=== PATIENT | male | born 1965 | race Caucasian/White ===

== ENCOUNTER → 2016-08-14 | Outpatient (CLI) | payer BC ==
--- NOTE | ~2016-08-14 | MR113 ---
[facility] A Service of [facility] RADIOLOGY TEXT RESULTS PATIENT: HAILEE MIRANDA LOCATION: [facility] : 69 UNIT #: [id number] AGE: [address]: Leodan Rock MD SEX: M ORDER DR: [id number] [address] [id number] O MR#: [id number] Acc #: [id number] NAME: HAILEE MIRANDA : 1965 SEX: M STUDY DATE/TIME: 08/14/2016 13:01 UNIT: [facility] ROOM: STUDY DESCRIPTION: MR Lumbar Wo Contrast Attending Physician: Leodan Rock M.D. Referring Physician: Leodan Rock M.D. Ordering Physician: Leodan Rock M.D. Primary Care Physician: Leodan Rock M.D. MRI CENTER REPORT This report is preliminary unless electronic signature is present. EXAM MRI of the lumbar spine without contrast HISTORY Sciatica. Low back pain for 19 years worse recently, left greater than right-sided. No history of cancer or trauma. COMMENT MRI of the lumbar spine performed without contrast using routine 1.5T imaging technique. There is no previous. Sagittal alignment is normal. Intervertebral discs are desiccated with mild loss of intervertebral disc height at L1-2, L3-4 and to a lesser extent L5-S1. Marrow endplate degenerative changes most apparent at L3-4, type 2. Multiple small Schmorl's nodes seen. The conus medullaris terminates at L1-2 and is normal. At L1-2, there is mild facet hypertrophy, left greater than right. There is no focal disc protrusion or extrusion. There is however a component of epidural lipomatosis which results in mild stenosis of the thecal sac. No foraminal impingement. At L2-3, there is mild facet degenerative change bilaterally and there is a broad left posterolateral protrusion with mild mass effect on the expected location of the left L2 root lateral to the foramen. There is mild ligamentum flavum thickening and epidural lipomatosis with [id number] mass effect on the thecal sac, largely due to the epidural lipomatosis. At L3-4, mild bilateral facet degenerative change and mild concentric disc bulge. It has a more focal component to the left side posterolaterally and mild left inferior foraminal narrowing. There is no focal extrusion. There is [id number] stenosis of the thecal sac. A significant [facility]. [facility] A Service of [facility] RADIOLOGY TEXT RESULTS PATIENT: HAILEE MIRANDA LOCATION: [facility] : 69 UNIT #: [id number] AGE: [address]: Leodan Rock MD SEX: M ORDER DR: component of the mass effect is due to the epidural lipomatosis. At L4-5, there is mild bilateral facet degenerative change with mild effacement of the anterior thecal sac. There is mild epidural lipomatosis. No central canal stenosis or foraminal impingement. At L5-S1, mild right and djuh-ob-hliciwrk left-side facet degenerative change with mild broad-based posterior disc protrusion more prominent to the left side posterolaterally. Mild mass effect on the thecal sac by the epidural fat. No significant foraminal impingement. Mildly developmentally small lumbar canal also noted secondary to short pedicles and this contributes to the multiple level stenosis of the thecal sac. IMPRESSION Patient has epidural lipomatosis and a mildly developmentally small lumbar canal. Relatively mild superimposed lumbar degenerative changes are detailed in the comment section also. The combination of findings result in multilevel stenosis of the thecal sac. This is most prominent at the level of L2-3. Please refer to the multilevel discussion and correlate with the patient's symptoms. Dictated by... Elba Huang M.D. THIS IS AN ELECTRONICALLY VERIFIED REPORT Elba Huang M.D. at 08/15/2016 4:43 PM DEVANTE/chris TD: 08/15/2016 11:13 JOB #: [id number] MRI CENTER REPORT
== END | disposition home or self-care (01) ==
LOC: SMRI 12:44
DX: M54.30 Sciatica, unspecified side (principal); E88.2 Lipomatosis, not elsewhere classified; M48.06 Spinal stenosis, lumbar region
CPT/HCPCS: 72148